=== PATIENT | female | born 1960 | race Caucasian/White ===

== ENCOUNTER 2017-03-01 04:04 | Emergency (ER) | payer OTHER ==
[~2017-03-01] VITALS: Ht 165.1 cm; Wt 64.4 kg
[~2017-03-01 04:04] MED LIST: CARI350T14 PO; HYDR-2762 PO; LEVO50TA5 PO; OMEP40CA2 PO; ONDA4TAB7 PO; POTA20TA12 PO; QUET50TA5 PO; SIMV20TA3 PO; ZOLP10TA PO
[2017-03-01 04:15] VITALS: BP 146/88
--- NOTE | 2017-03-01 04:28 | PHYS DOC ---
Past Medical History Past Medical History: High Cholesterol, Hypothyroid, Hepatitis, Other Additional Past Medical Histor: chronic back pain, HEP C + Past Surgical History: Appendectomy, Cholecystectomy, Other Additional Past Surgical Histo: R knee, L wrist Alcohol Use: None Drug Use: None Adult General Chief Complaint Chief Complaint: PAIN CONTROL HPI HPI Patient is a 56 year old female who presents with pain. She states she's had issues of the since age of 12. She's been on Soma and OxyContin in the past. She states she ran out of her meds approximately 6 months ago when her doctor moved to [place]. She states she does have a car so she can't go follow-up with him way out there. She states her left hip started hurting yesterday and she couldn't sleep overnight. She states she has nothing at home for the pain or discomfort. She denies any numbness or tingling or weakness in her leg. She states she's been walking with a steady gait. She denies any injury or fall. He also states she has a history of hypokalemia is been out of her potassium pills. She is requesting we check her potassium level. Review of Systems Review of Systems Constitutional: Denies fever or chills [] Eyes: Denies change in visual acuity, redness, or eye pain [] HENT: Denies nasal congestion or sore throat [] Respiratory: Denies cough or shortness of breath [] Cardiovascular: No additional information not addressed in HPI [] GI: Denies abdominal pain, nausea, vomiting, bloody stools or diarrhea [] : Denies dysuria or hematuria [] Musculoskeletal: Positive for left sided hip pain Integument: Denies rash or skin lesions [] Neurologic: Denies headache, focal weakness or sensory changes [] Endocrine: Denies polyuria or polydipsia [] Current Medications Current Medications Current Medications Medications (Trade) Dose Ordered Sig/Bon Start Time Stop Time Status Last Admin Dose Admin Carisoprodol (Soma) 350 mg 1X ONCE 03/01/17 05:00 03/01/17 05:01 DC Allergies Allergies Allergies Coded Allergies Type Severity Reaction Last Updated Verified No Known Drug Allergies 09/19/14 No Physical Exam Physical Exam Constitutional: Well developed, well nourished, no acute distress, non-toxic appearance. [] HENT: Normocephalic, atraumatic, bilateral external ears normal, oropharynx moist, no oral exudates, nose normal. [] Eyes: PERRLA, EOMI, conjunctiva normal, no discharge. [] Neck: Normal range of motion, no tenderness, supple, no stridor. [] Cardiovascular:Heart rate regular rhythm, no murmur [] Lungs & Thorax: Bilateral breath sounds clear to auscultation [] Abdomen: Bowel sounds normal, soft, no tenderness, no masses, no pulsatile masses. [] Skin: Warm, dry, no erythema, no rash. [] Back: No tenderness, no CVA tenderness. [] Extremities: Mild tenderness palpation over the left greater trochanteric area, straight leg raise negative bilaterally no cyanosis, no clubbing, ROM intact, no edema. Ambulates with a steady gait Neurologic: Alert and oriented X 3, normal motor function, normal sensory function, no focal deficits noted. [] Psychologic: Affect normal, judgement normal, mood normal. [] Current Patient Data Vital Signs Vital Signs Date Time Temp Pulse Resp B/P (MAP) Pulse Ox O2 Delivery O2 Flow Rate FiO2 03/01/17 04:15 98.0 82 18 97 Room Air 98.0 Lab Values Laboratory Tests Test 03/01/17 04:46 POC Hemoglobin 13.6 g/dL (12-15) POC Hematocrit 40 % (36-40) POC Sodium 140 mmol/L (135-145) POC Potassium 3.4 mmol/L (3.5-5.0) L POC Chloride 106 mmol/L (98-110) POC Total CO2 24 mmol/L (23-32) Anion Gap 14 mmol/L (6-14) POC Blood Urea Nitrogen 14 mg/dL (8-26) POC Creatinine 0.7 mg/dL (0.5-1.4) Glucose Level 102 mg/dL (70-99) H POC Ionized Calcium (Jefry) 1.17 mmol/L (1.13-1.32) Laboratory Tests 03/01/17 04:46 EKG EKG [] Radiology/Procedures Radiology/Procedures [] Impressions: Left hip pain Hypokalemia Course & Med Decision Making Course & Med Decision Making Pertinent Labs and Imaging studies reviewed. (See chart for details) I-STAT shows potassium of 3.4. I ordered 40 mg by mouth potassium 1. She's also be discharged with Soma 350 mg 3 times a day and daily at bedtime. Return precautions given she is agreeable to the plan and being discharged in stable condition at this time. Return precautions given for several seizure, weakness in her leg, or other concerns. She is in stable condition being discharged home. Dragon Disclaimer Dragon Disclaimer This electronic medical record was generated, in whole or in part, using a voice recognition dictation system. Departure Departure Impression: Primary Impression: Chronic back pain Additional Impression: Hypokalemia Disposition: HOME, SELF-CARE Condition: STABLE Referrals: NO PCP (PCP) Patient Instructions: Back Pain, Adult, [id number] Additional Instructions: Your potassium level was 3.4. This is on the low side of normal. I gave you 1 dose of oral potassium. Your being discharged home with Soma 350 mg every 8 hours and 1 before bed. Be careful with using this medicine as it can make you sleepy and impair your judgment. Please do not drive your car while taking this medicine. You need to follow-up with her physician regarding her chronic hip pain. Return ER if he develops weakness in your leg, numbness in your leg, inability to hold her bowel or bladder or you have other concerns. Scripts Carisoprodol (SOMA) 350 Mg Tablet 350 MG PO TID&HS, #30 TAB Prov: CASSY WINCHESTER MD 03/01/17 Problem Qualifiers Primary Impression: Chronic back pain Back pain location: back pain in unspecified location Back pain laterality: left Qualified Codes: M54.9 - Dorsalgia, unspecified; G89.29 - Other chronic pain CASSY WINCHESTER MD Mar 01, 2017 04:27
--- NOTE | 2017-03-01 04:39 | ACF ---
Admission Forms Criteria PAIN MANAGEMENT [facility] Clinical Indications for Admission to Inpatient Care (Place 'X' for any and all applicable criteria): Hospital admission is needed for appropriate care of the patient because of 1 or more of the following are present (1)(2)(3)(4)(5): [ ]I. Severe pain requiring acute inpatient management as indicated by 1 or more of the following (2)(5)(10): [ ]a) Continuous or frequent (eg, every 2 to 4 hours) parenteral analgesics required [A] [ ]b) Necessity (ie, alternative approaches not effective) for analgesic regimen that can only be performed or initiated in inpatient setting [ ]II. Pain causing debilitation to the point of inability to function or be supported at any other level of care [ ]III. Severe side effects from pain medications as indicated by ANY ONE of the following (12)(13)(14)(15): [ ]a) Uncontrollable seizures [ ]b) Cardiac arrhythmias of immediate concern [ ]c) Dehydration that is severe or persistent [ ]d) Vomiting that is severe or persistent [ ]e) Altered mental status that is severe or persistent [ ]f) Obstipation with inadequate GI function to maintain nutrition The original [employer] content created by [employer] has been revised. The portions of the content which have been revised are identified through the use of italic text or in bold, and [employer] has neither reviewed nor approved the modified material. All other unmodified content is copyright [employer]. Please see references footnoted in the original [employer] edition 2016 ALEKSANDRA KING Mar 01, 2017 04:39
[2017-03-01 04:58] LABS: POTASSIUM ISTAT 3.4 mmol/L (3.5-5.0)
[2017-03-01] MEDS ORDERED: CARISOPRODOL 350 MG TABLET PO ONE (05:00)
[2017-03-01] MEDS ORDERED: CARI350T PO (05:07)
[2017-03-01] MEDS ORDERED: POTASSIUM CHLORIDE 20 MEQ TABLET.ER. PO ONE (05:15)
== END 2017-03-01 05:13 | disposition home or self-care (01) ==
LOC: ER 04:04
DX: G89.29 Other chronic pain (principal); M54.9 Dorsalgia, unspecified; M25.552 Pain in left hip; E87.6 Hypokalemia; E03.9 Hypothyroidism, unspecified; E78.00 Pure hypercholesterolemia, unspecified; Z86.19 Personal history of other infectious and parasitic diseases; Z90.49 Acquired absence of other specified parts of digestive tract; Z79.891 Long term (current) use of opiate analgesic; Z79.899 Other long term (current) drug therapy
CPT/HCPCS: 36415; 80047; 99283

== ENCOUNTER 2017-04-13 12:34 | Emergency (ER) | payer OTHER ==
[~2017-04-13] VITALS: Ht 165.1 cm; Wt 65.8 kg
[~2017-04-13 12:34] MED LIST changes: +CARI350T PO
[2017-04-13 12:50] VITALS: BP 135/73
[2017-04-13] MEDS ORDERED: AMOX875T PO (13:17)
[2017-04-13] MEDS ORDERED: TRAM-48 PO (13:17)
--- NOTE | 2017-04-13 13:17 | PHYS DOC ---
Past Medical History Past Medical History: Anxiety, Diverticulosis, High Cholesterol, Hypothyroid, Hepatitis, Kidney Stone, Other Additional Past Medical Histor: chronic back pain, HEP C + Past Surgical History: Appendectomy, Cholecystectomy, Other Additional Past Surgical Histo: R knee, L wrist Alcohol Use: None Drug Use: None Adult General Chief Complaint Chief Complaint: EARACHE/EAR PAIN HPI HPI Patient is a 56 year old female with history of high cholesterol, hepatitis, kidney stones, anxiety, who presents today with moderate left ear pain that has been going on for weeks. Patient states she has tried decongestants with no relief. Denies any fever coughing or congestion. She has history of smoking. Review of Systems Review of Systems Constitutional: Denies fever or chills [] Eyes: Denies change in visual acuity, redness, or eye pain [] HENT: Left ear pain Respiratory: Denies cough or shortness of breath [] Cardiovascular: No additional information not addressed in HPI [] GI: Denies abdominal pain, nausea, vomiting, bloody stools or diarrhea [] : Denies dysuria or hematuria [] Musculoskeletal: Denies back pain or joint pain [] Integument: Denies rash or skin lesions [] Neurologic: Denies headache, focal weakness or sensory changes [] Endocrine: Denies polyuria or polydipsia [] Allergies Allergies Allergies Coded Allergies Type Severity Reaction Last Updated Verified No Known Drug Allergies 09/19/14 No Physical Exam Physical Exam Constitutional: Well developed, well nourished, no acute distress, non-toxic appearance. [] HENT: Normocephalic, atraumatic, bilateral external ears normal, oropharynx moist, no oral exudates, nose normal. [] Left TM is moderately injected with mild amount of cloudy fluid. Eyes: PERRLA, EOMI, conjunctiva normal, no discharge. [] Neck: Normal range of motion, no tenderness, supple, no stridor. [] Cardiovascular:Heart rate regular rhythm, no murmur [] Lungs & Thorax: Bilateral breath sounds clear to auscultation [] Abdomen: Bowel sounds normal, soft, no tenderness, no masses, no pulsatile masses. [] Skin: Warm, dry, no erythema, no rash. [] Back: No tenderness, no CVA tenderness. [] Extremities: No tenderness, no cyanosis, no clubbing, ROM intact, no edema. [] Neurologic: Alert and oriented X 3, normal motor function, normal sensory function, no focal deficits noted. [] Psychologic: Affect normal, judgement normal, mood normal. [] Current Patient Data Vital Signs Vital Signs Date Time Temp Pulse Resp B/P (MAP) Pulse Ox O2 Delivery O2 Flow Rate FiO2 04/13/17 12:50 98.4 87 20 96 Room Air 98.4 EKG EKG [] Radiology/Procedures Radiology/Procedures [] Course & Med Decision Making Course & Med Decision Making Pertinent Labs and Imaging studies reviewed. (See chart for details) Patient has left otitis media. Discharged with amoxicillin for 10 days. Discharged with Ultram for pain. Provided a doctor's list for follow-up. Encouraged to consider smoking cessation. Dragon Disclaimer Dragon Disclaimer This electronic medical record was generated, in whole or in part, using a voice recognition dictation system. Departure Departure Impression: Primary Impression: Otitis media, left Additional Impression: Smoking addiction Disposition: HOME, SELF-CARE Condition: STABLE Referrals: NO PCP (PCP) Follow-up with a doctor from the list provided in 1-2 weeks. Patient Instructions: Otitis Media, Adult, Smoking Cessation Additional Instructions: You were seen for left ear infection. Complete your antibiotics. Do not drive or operate machinery on the pain medication. Follow-up with a doctor from the list provided in 1-2 weeks. Consider smoking cessation. Scripts Hydrocodone/Apap 5-325 (NORCO 5-325 TABLET) 1 Each Tablet 1-2 TAB PO Q4-6HRS, #4 TAB Prov: BOO HENNING APRN 04/13/17 Tramadol Hcl (ULTRAM) 50 Mg Tablet 1 TAB PO Q6HRS, #30 TAB Prov: BOO HENNING QUARRY EQUIPMENT OPERATOR 04/13/17 Amoxicillin (AMOXICILLIN) 875 Mg Tablet 1 TAB PO BID, #20 TAB Prov: BOO HENNING APRN 04/13/17 Problem Qualifiers Primary Impression: Otitis media, left Otitis media type: other nonsuppurative Chronicity: acute Recurrence: not specified as recurrent Qualified Codes: H65.192 - Other acute nonsuppurative otitis media, left ear BOO HENNING APRN Apr 13, 2017 13:17
[2017-04-13] MEDS ORDERED: HYDR-971 PO (13:26)
== END 2017-04-13 13:25 | disposition home or self-care (01) ==
LOC: ER 12:34
DX: H65.192 Other acute nonsuppurative otitis media, left ear (principal); F17.200 Nicotine dependence, unspecified, uncomplicated; E78.00 Pure hypercholesterolemia, unspecified; E03.9 Hypothyroidism, unspecified; G89.29 Other chronic pain; Z90.49 Acquired absence of other specified parts of digestive tract; Z86.19 Personal history of other infectious and parasitic diseases
CPT/HCPCS: 99283

== ENCOUNTER 2018-10-18 13:14 | Emergency (ER) | payer SELFPAY ==
[~2018-10-18] VITALS: Ht 165.1 cm; Wt 73.9 kg
[~2018-10-18 13:14] MED LIST changes: +AMOX875T PO; -HYDR-2762 PO; +HYDR-2765 PO; +HYDR-3164 PO; +MECL25TA3 PO; +TRAM-48 PO
[2018-10-18 13:27] VITALS: BP 122/60
[2018-10-18] MEDS ORDERED: NAPROXEN 500 MG TABLET PO ONE (15:00)
[2018-10-18] MEDS ORDERED: CYCLOBENZAPRINE 10 MG TABLET. PO ONE (15:00)
--- NOTE | 2018-10-18 15:09 | RAD ---
Examination: 2 views of the left hip HISTORY: History of left hip pain COMPARISON: 06/16/2005 FINDINGS: The left femoral head is within the acetabulum. Moderate joint space loss identified in the left hip joint. There is no acute fracture or dislocation identified. IMPRESSION: Moderate degenerative changes left hip joint. Electronically signed by: Sandeep Metz MD (10/18/2018 3:06 PM) [place] [id number]
[2018-10-18] MEDS ORDERED: HYDR-2761 PO (16:01)
--- NOTE | 2018-10-18 16:01 | PHYS DOC ---
Past Medical History Past Medical History: Anxiety, Diverticulosis, High Cholesterol, Hypothyroid, Hepatitis, Kidney Stone, Other Additional Past Medical Histor: chronic back pain, HEP C + Past Surgical History: Appendectomy, Cholecystectomy, Other Additional Past Surgical Histo: R knee, L wrist Alcohol Use: None Drug Use: None Adult General Chief Complaint Chief Complaint: HIP PAIN HPI HPI Patient is a 57 year old female who presents to the ER with complaints of left hip pain for the last week. She denies any injury, states the pain has gotten progressively worse. She reports that the pain improves when she bears weight on her left leg. Pt states it feels like her left hip pops out and goes back in , describes it as a clicking or popping sensation. She denies any decreased ROM of L hip. Review of Systems Review of Systems Constitutional: Denies fever or chills [] Musculoskeletal: Denies back pain; reports left hip pain denies numbness, tingling, or weakness. Integument: Denies rash or skin lesions [] Neurologic: Denies headache, focal weakness or sensory changes [] Current Medications Current Medications Current Medications Medications (Trade) Dose Ordered Sig/Bon Start Time Stop Time Status Last Admin Dose Admin Cyclobenzaprine HCl (Flexeril) 10 mg 1X ONCE 10/18/18 15:00 10/18/18 15:01 DC 10/18/18 14:55 10 MG Naproxen (Naprosyn) 500 mg 1X ONCE 10/18/18 15:00 10/18/18 15:01 DC 10/18/18 14:55 500 MG Allergies Allergies Allergies Coded Allergies Type Severity Reaction Last Updated Verified No Known Drug Allergies 09/19/14 No Physical Exam Physical Exam Constitutional: Well developed, well nourished, no acute distress, non-toxic appearance. [] HENT: Normocephalic, atraumatic, bilateral external ears normal, nose normal. [] Eyes: conjunctiva normal, no discharge. [] Neck: Normal range of motion, no stridor. [] Lungs & Thorax: respirations even and unlabored. Skin: Warm, dry, no erythema, no rash. [] Extremities: No TTP. no cyanosis, no clubbing, ROM intact LLE, no edema. [] Neurologic: Alert and oriented X 3, normal motor function, normal sensory function, no focal deficits noted. [] Psychologic: Affect normal, judgement normal, mood normal. [] Current Patient Data Vital Signs Vital Signs Date Time Temp Pulse Resp B/P (MAP) Pulse Ox O2 Delivery O2 Flow Rate FiO2 10/18/18 13:27 97.7 80 16 122/60 (80) 97 Room Air 97.7 EKG EKG [] Radiology/Procedures Radiology/Procedures PROCEDURE: HIP LEFT 2 VIEW Examination: 2 views of the left hip HISTORY: History of left hip pain COMPARISON: 06/16/2005 FINDINGS: The left femoral head is within the acetabulum. Moderate joint space loss identified in the left hip joint. There is no acute fracture or dislocation identified. IMPRESSION: Moderate degenerative changes left hip joint.[] Course & Med Decision Making Course & Med Decision Making Pertinent Labs and Imaging studies reviewed. (See chart for details) Discussed x-ray results with patient, advised of degenerative changes. Recommend that patient follow up with her orthopedic Dr. Hidalgo for further evaluation and treatment of chronic hip pain. Pt verbalized an understanding, she left prior to receiving written instructions, but did receive verbal instructions given by myself. [] Dragon Disclaimer Dragon Disclaimer This electronic medical record was generated, in whole or in part, using a voice recognition dictation system. Departure Departure Impression: Primary Impression: Left hip pain Disposition: HOME, SELF-CARE Condition: STABLE Referrals: DANETTE HIDALGO MD Patient Instructions: Hip Pain Additional Instructions: Fill prescription and use as directed for severe pain. Follow up with Dr. Hidalgo for further evaluation and treatment, return to the ER if symptoms worsen. Scripts Hydrocodone Bit/Acetaminophen (HYDROCODONE-APAP 5-325 ) 1 Tab Tablet 1 TAB PO PRN Q6HRS PRN for PAIN for 2 Days, #8 TAB 0 Refills Prov: TODD ESPINOZA APRN 10/18/18 TODD ESPINOZA OPERATIONS SUPERINTENDENT Oct 18, 2018 16:01
== END 2018-10-18 16:00 | disposition home or self-care (01) ==
LOC: ER 13:14
DX: M25.552 Pain in left hip (principal); F41.9 Anxiety disorder, unspecified; E78.00 Pure hypercholesterolemia, unspecified; E03.9 Hypothyroidism, unspecified; G89.29 Other chronic pain; Z90.49 Acquired absence of other specified parts of digestive tract; Z90.89 Acquired absence of other organs; Z87.442 Personal history of urinary calculi
CPT/HCPCS: 73502; 99283

== ENCOUNTER 2020-09-12 19:52 | Emergency (ER) | payer SELFPAY ==
[~2020-09-12 19:52] MED LIST changes: +HYDR-2761 PO; +MECL-75 PO; -MECL25TA3 PO; +SIMV20TA18 PO; -SIMV20TA3 PO
== END 2020-09-12 19:57 | disposition left against medical advice (07) ==
LOC: ER 19:52
DX: R53.1 Weakness (principal); Z53.21 Procedure and treatment not carried out due to patient leaving prior to being seen by health care provider

== ENCOUNTER 2020-11-27 01:16 | Emergency (ER) | payer SELFPAY ==
[~2020-11-27] VITALS: Ht 165.1 cm; Wt 75.0 kg
--- NOTE | 2020-11-27 01:57 | PHYS DOC ---
Past Medical History Past Medical History: Anxiety, Diverticulosis, High Cholesterol, Hypothyroid, Hepatitis, Kidney Stone, Migraines, Other Additional Past Medical Histor: chronic back pain, HEP C + Past Surgical History: Appendectomy, Cholecystectomy, Other Additional Past Surgical Histo: R knee, L wrist Smoking Status: Current Every Day Smoker Additional Information: 1.0ppd Alcohol Use: None Drug Use: None General Adult EDM: Chief Complaint: ANXIETY/PANIC ATTACK HPI: HPI: Patient is a 60-year-old female presenting via EMS for panic attack. Patient reports having increased home stress recently and when sitting at side of bed preparing for sleep, " my mind just started racing". States her thoughts prompted her to have increased anxiety leading to a panic attack. Patient's daughter whom lives with patient was subsequently concerned and called EMS for transport to our ER for evaluation. There has been no trauma, fever, chest pain, there was transient shortness of breath initially but this is resolved, no abdominal pain, UTI-like symptoms, changes in medication. She does not have a primary care physician, has history of attending therapy but has not done this in a "long time", no SI/HI Review of Systems: Review of Systems: Fourteen body systems of review of systems have been reviewed. See HPI for pertinent positives and negative responses, other agrcias all other systems are negative, non-pertinent or non-contributory Heart Score: C/O Chest Pain: No HEART Score for Chest Pain: HEART Score for Chest Pain Response (Comments) Value History Slighlty/Non-Suspicious 0 ECG Normal 0 Age >45 - < 65 1 Risk Factors 1 or 2 Risk Factors 1 Total 2 Risk Factors: Risk Factors: DM, Current or recent (<one month) smoker, HTN, HLP, family history of CAD, obesity. Risk Scores: Score 0 - 3: 2.5% MACE over next 6 weeks - Discharge Home Score 4 - 6: 20.3% MACE over next 6 weeks - Admit for Clinical Observation Score 7 - 10: 72.7% MACE over next 6 weeks - Early Invasive Strategies Allergies: Allergies: Allergies Coded Allergies Type Severity Reaction Last Updated Verified No Known Drug Allergies 09/19/14 No Physical Exam: PE: Constitutional: Well developed, well nourished, no acute distress, non-toxic appearance. HENT: Normocephalic, atraumatic, bilateral external ears normal, oropharynx dry, no oral exudates, nose normal. Eyes: PERRLA, EOMI, conjunctiva normal, no discharge. Neck: Normal range of motion, no tenderness, supple, no stridor. Cardiovascular: Heart rate regular, sinus rhythm, no murmurs rubs or gallops Lungs & Thorax: Bilateral breath sounds clear to auscultation Abdomen: Bowel sounds normal, soft, no tenderness, no masses, no pulsatile masses. Nonsurgical abdomen, no peritoneal signs Skin: Warm, dry, no erythema, no rash. Back: No tenderness, no CVA tenderness. Extremities: No tenderness, no cyanosis, no clubbing, ROM intact, no edema. Neurologic: Alert and oriented X 3, grossly normal motor & sensory function, no focal deficits noted. Psychologic: Anxious affect and mood Current Patient Data: Vital Signs: Vital Signs Date Time Temp Pulse Resp B/P (MAP) Pulse Ox O2 Delivery O2 Flow Rate FiO2 11/27/20 01:20 98.3 91 16 167/86 (113) 98 Room Air 98.3 EKG: EKG: EKG ordered and interpreted by myself at 0136 hrs. as sinus rhythm at 92 bpm, unremarkable intervals, left axis deviation, no acute ischemic findings Radiology/Procedures: Radiology/Procedures: XR CHEST 1V Clinical Indication: Shortness of breath: Comparison: None. Findings: Lung apices are at at the edge of the [id number]. The cardiomediastinal silhouette is normal. Minimal bibasilar linear opacities. Lungs otherwise clear. There is no pneumothorax. No pleural effusion is appreciated. No acute bone abnormality. IMPRESSION: Minimal bibasilar linear opacities may be discoid atelectasis or scarring. Electronically signed by: Miko Diaz MD (11/27/2020 2:23 AM) [facility] Course & Med Decision Making: Course & Med Decision Making Discussed most likely diagnosis of panic attack. EKG and radiograph un remarkable. Patient arrived and "felt much better ". She is asymptomatic on arrival. She wanted me to evaluate suspect rash on left upper extremity but this was grossly benign. Also wanted me to evaluate chronic lower extremity pain but again, there is no concerning findings on physical exam without indication for further diagnostic work-up in ER setting I discussed need for patient to establish with primary care provider to discuss chronic complaints and to establish mental health resources/connection. I feel patient would benefit from outpatient therapy. Discussed little utility in further diagnostic work-up in ER setting and patient agreed, she was feeling much better and ready to go home. Strict return precautions were discussed with good understanding by patient, all questions and concerns addressed prior to ER departure Brandon Disclaimer: Brandon Disclaimer: This electronic medical record was generated, in whole or in part, using a voice recognition dictation system. Departure Departure Impression: Primary Impression: Panic attack Disposition: 01 DC HOME SELF CARE/HOMELESS Condition: GOOD Referrals: NO PCP (PCP) Patient Instructions: Anxiety and Panic Attacks Additional Instructions: You were seen in the ED for evaluation of anxiety. Anxiety is a serious medical condition with unfortunate effects on daily living. You should utilize the Behavior Health resources and establish care with a local primary care provider for further management of your symptoms. Your ER work-up today was nonconcerning for any emergent issues, as disclose there is no indication for further diagnostic work-up that involved blood work or other studies. If any concerning signs or symptoms present prior to outpatient follow-up please do not hesitate to come back for repeat evaluation. It was a pleasure to take care of you and I wish you the best going forward JENNIFER MANCERA DO Nov 27, 2020 01:57
[2020-11-27 02:21] VITALS: BP 144/79
--- NOTE | 2020-11-27 02:26 | RAD ---
XR CHEST 1V Clinical Indication: Shortness of breath: Comparison: None. Findings: Lung apices are at at the edge of the [id number]. The cardiomediastinal silhouette is normal. Mini mal bibasilar linear opacities. Lungs otherwise clear. There is no pneumothorax. No pleural effusion is appreciated. No acute bone abnormality. IMPRESSION: Minimal bibasilar linear opacities may be discoid atelectasis or scarring. Electronically signed by: Miko Diaz MD (11/27/2020 2:23 AM) [facility]
--- NOTE | 2020-11-27 04:07 | EKG ---
[facility] [address] [place] [address] Test Date: 2020-11-27 Test Time: 01:26:14 Pat Name: OTF NINO Department: Room: Gender: F Medication Assistant: : 1960 Requested By: JENNIFER MANCERA Order Number: [id number] Reading MD: Measurements Intervals [place] Rate: 92 P: 38 MT: 170 QRS: -15 QRSD: 80 T: 30 QT: 356 QTc: 445 Interpretive Statements SINUS RHYTHM LEFT ATRIAL ABNORMALITY LEFTWARD AXIS CONSIDER LEFT VENTRICULAR HYPERTROPHY ABNORMAL ECG RI6.02 No previous ECG available for comparison
== END 2020-11-27 03:00 | disposition home or self-care (01) ==
LOC: ER 01:16
DX: F41.0 Panic disorder [episodic paroxysmal anxiety] (principal); F41.9 Anxiety disorder, unspecified; G43.909 Migraine, unspecified, not intractable, without status migrainosus; E03.9 Hypothyroidism, unspecified; E78.00 Pure hypercholesterolemia, unspecified; G89.29 Other chronic pain; F17.200 Nicotine dependence, unspecified, uncomplicated
CPT/HCPCS: 71045; 93005; 99284